=== PATIENT | female | born 1980 | race Caucasian/White ===

== ENCOUNTER 2016-10-08 18:25 | Emergency (ER) | payer OTHER ==
[~2016-10-08] VITALS: Ht 177.8 cm; Wt 73.4 kg
[~2016-10-08 18:25] MED LIST: BCPILLS PO; DOCU-94 PO; PRENTAB26 PO
[2016-10-08 18:34] VITALS: BP 114/76; PULSE 73; TEMP 36.9; O2SAT 100; Ht 177.8 cm; Wt 73.4 kg
[2016-10-08] MEDS ORDERED: PENI500T2 PO (19:17)
--- NOTE | 2016-10-08 19:22 | EMERGENCY ROOM VISIT NOTE ---
ED Visit Note First contact with patient: 18:47 CHIEF COMPLAINT: Sore throat x 3 days HISTORY OF PRESENT ILLNESS: The patient reports increasing pain in the throat over the past 3 days, gradual in onset, worse with swallowing. The patient states the discomfort started with a mild sore, scratchy throat, however has now progressed and it is now difficult for her to swallow and she is having difficulty swallowing food. She states the sore throat began on the left, and now is bilateral. She does report radiating pain towards her inner ears bilaterally. The patient did take Motrin, however this did not relieve her discomfort. She was unable to get an appointment with her PCP until tomorrow, however states that the discomfort became so bad that she felt that she could not wait that long. No fever or chills. No rash. Denies any posterior neck pain or stiffness. No difficulty breathing. Symptoms came on gradually. There has been no chest pain, no abdominal pain, no nausea or vomiting. REVIEW OF SYSTEMS: No headache, no rash, no cough or shortness of breath, no hoarseness. No vomiting or abdominal pain. PMH: The patient is healthy; there is no significant medical or surgical history. SOCIAL HISTORY: Patient lives at home. PHYSICAL EXAM: Vital Signs: Reviewed Nurse's notes. MENTAL STATUS: Alert and oriented. THROAT: The pharynx is inflamed and slightly swollen. exudates are seen on the tonsils. The oropharyngeal airway is patent. Uvula is midline and no abscess is seen. EARS: External auditory canals clear, tympanic membranes pearly mitchell without erythema or effusion bilaterally. NECK: The upper, anterior lymph nodes are enlarged and tender. The neck is not stiff. SKIN: Clear and dry, no eruptions. No cyanosis, no petechiae. ED COURSE: The patient was seen and evaluated as above. A rapid strep test was performed, which was positive. I discussed with the patient proper treatment and management for strep throat, and encouraged her to take antibiotics as prescribed. The patient was discharged home in good condition. DIFFERENTIAL DIAGNOSIS: Mononucleosis, viral pharyngitis, acute upper respiratory infection, acute otitis media, acute otitis externa, and others. DIAGNOSIS: Acute streptococcal pharyngitis DISCHARGE INSTRUCTIONS & TREATMENT: Current/Historical Medications No Active Prescriptions or Reported Meds Allergies Coded Allergies: Cat Dander (Verified Allergy, Unknown, Unknown, 10/08/16) Vital Signs Date Time Temp Pulse Resp B/P (MAP) Pulse Ox O2 Delivery O2 Flow Rate FiO2 10/08/16 18:34 97 Room Air 10/08/16 18:34 36.9 73 16 114/76 100 Room Air Departure Information Impression Primary Impression: Strep pharyngitis Dispostion Home / Self-Care Condition GOOD Prescriptions Penicillin V Potassium (VEETIDS) 500 Mg Tab 1 TAB PO BID for 10 Days, #20 TAB Prov: Neeta Goss PA-C 10/08/16 Referrals No Doctor, Assigned (PCP) Patient Instructions ED Strep Pharyngitis Conf, My [facility] Additional Instructions Your rapid strep screen was read as positive. Take prescription medications as prescribed. Penicillin VK 500 mg t.i.d. x10 days. All antibiotics have the potential to cause diarrhea. A few develop a rash while on this medication stop the medication and see your family physician for evaluation. Take the Medrol Dosepak as prescribed. Ibuprofen(Motrin, Advil) may be used for fever or pain. Use 600mg every six hours as needed. Take with food. Avoid using more than 2400mg in a 24 hour period. Do not use 2400mg per day for more than three consecutive days without physician direction. Prolonged inappropriate use can lead to stomach upset or ulcers. (AND/OR) Acetaminophen(Tylenol) may be used for fever or pain. Use 1000mg every six hours as needed. Avoid using more than 3000mg in a 24 hour period. Use warm salt water gargles. And drink warm tea to help soothe your throat. You may use a combination of liquid benadryl and liquid maalox to swish and spit for relief of discomfort caused by sore throat. Return to emergency department if symptoms of difficulty breathing, increased pain or difficulty swallowing, or symptoms do not respond to the case described.
== END 2016-10-08 19:36 | disposition home or self-care (01) ==
LOC: C.EDB 18:26 → C.EDD 19:36
DX: J02.0 Streptococcal pharyngitis (principal)